=== PATIENT | male | born 1985 | race Two or more races ===

== ENCOUNTER 2023-02-01 19:34 | Emergency (ER) | payer OTHER ==
[~2023-02-01] VITALS: Ht 170.2 cm; Wt 86.4 kg
[2023-02-01 19:39] VITALS: TEMP 97.8
[2023-02-01 21:41] VITALS: BP 123/74; PULSE 69; RESP 18
== END 2023-02-01 22:40 | disposition home or self-care (01) ==
LOC: EMS 19:35
DX: S09.90XA Unspecified injury of head, initial encounter (principal); F10.20 Alcohol dependence, uncomplicated; F32.A Depression, unspecified; W22.8XXA Striking against or struck by other objects, initial encounter; Y93.89 Activity, other specified; Y92.89 Other specified places as the place of occurrence of the external cause; Y99.0 Civilian activity done for income or pay
CPT/HCPCS: 99281; Z7502

== ENCOUNTER 2023-08-16 22:31 | Emergency (ER) | payer OTHER ==
[~2023-08-16] VITALS: Ht 182.9 cm; Wt 79.5 kg
[2023-08-16 22:31] VITALS: BP 113/63; PULSE 100; RESP 18; TEMP 98.3
== END 2023-08-17 00:16 ==
LOC: EMS 22:33
DX: F10.20 Alcohol dependence, uncomplicated; F32.A Depression, unspecified; Y90.9 Presence of alcohol in blood, level not specified
CPT/HCPCS: 74018; 99283